=== PATIENT | male | born 1995 | race Two or more races ===

== ENCOUNTER 2023-09-29 02:50 | Emergency (ER) | payer MEDICAID, OTHER ==
[~2023-09-29] VITALS: Ht 170.2 cm; Wt 82.0 kg
[2023-09-29 03:19] VITALS: BP 122/78; PULSE 83; RESP 16; TEMP 97.8; O2SAT 97
[2023-09-29] MEDS ORDERED: IBUP-1454 PO (04:15)
[2023-09-29] MEDS ORDERED: AUG875T PO (04:15)
[2023-09-29] MEDS ORDERED: MUPI2OIN2 EX (04:15)
[2023-09-29] MEDS: NEOMYCIN-BACITRACIN-POLYM UNITDOSE PKG TOP OINT TOP ONE (04:33)
[2023-09-29] MEDS: TETANUS-DIPTH-ACEL PERTUSSIS 0.5ML SYR Tdap IM ONE (04:33)
[2023-09-29] MEDS: HYDROcodone-ACET 5/325MG TAB PO ONE (04:34)
[2023-09-29] MEDS: AMOXICILLIN/CLAVUL 875 MG TAB PO ONE (04:34)
== END 2023-09-29 05:49 | disposition home or self-care (01) ==
LOC: ER 02:50
DX: S52.502A Unspecified fracture of the lower end of left radius, initial encounter for closed fracture (principal); W54.0XXA Bitten by dog, initial encounter; Y93.89 Activity, other specified; Y92.89 Other specified places as the place of occurrence of the external cause; Y99.8 Other external cause status
CPT/HCPCS: 29125; 73090; 90471; 90715